=== PATIENT | female | born 1950 | race Caucasian/White ===

== ENCOUNTER → 2017-02-21 | Outpatient (CLI) | payer MEDICARE | END | disposition home or self-care (01) | LOC: CVU 13:38 | PROVIDERS: ATTEND Family Medicine | DX: I65.21 Occlusion and stenosis of right carotid artery (principal); Z86.73 Personal history of transient ischemic attack (TIA), and cerebral infarction without residual deficits | CPT/HCPCS: 93880 ==

== ENCOUNTER 2018-08-25 11:37 | Emergency (ER) | payer MEDICARE ==
[~2018-08-25] VITALS: Ht 165.1 cm; Wt 59.0 kg
[2018-08-25] MEDS ORDERED: DEXAMETHASONE 4 MG/ML, 5ML ONE (12:20)
[2018-08-25] MEDS ORDERED: DIPHENHYDRAMINE 50 MG/ML, 1ML ONE (12:20)
[2018-08-25] MEDS ORDERED: METOCLOPRAMIDE 5 MG/ML, 2ML ONE (12:20)
[2018-08-25] MEDS ORDERED: DEXAMETHASONE 4 MG/ML, 1ML IVPush ONE (12:30)
[2018-08-25] MEDS ORDERED: METOCLOPRAMIDE 5 MG/ML, 2ML IVPush ONE (12:30)
[2018-08-25] MEDS ORDERED: DIPHENHYDRAMINE 50 MG/ML, 1ML IVPush ONE (12:30)
--- NOTE | 2018-08-25 12:53 | NUR ---
PT RETURNED FROM XR & CT. PT LAYING ON GURNEY AWAKE & COMFORTABLE, RESPONDS APPROP TO STAFF, NAD, COMFORT MEASURES PROVIDED, CALL LIGHT WITHIN REACH.
[2018-08-25 13:48] VITALS: BP 154/70
--- NOTE | 2018-08-25 13:49 | NUR ---
PT CONTINUES TO LAY ON GURNEY WITH EYES CLOSED, ABLE TO DOZE OFF, RESPONDS APPROP TO STAFF, NAD, COMFORT MEASURES PROVIDED, CALL LIGHT WITHIN REACH.
--- NOTE | 2018-08-25 14:45 | NUR ---
PT DISCHARGED AND WAS NOT ABLE TO RECEIVE DC PAPERWORK. DAUGHTER CALLED AT PHONE NUMBER LISTED AND WILL RETURN TO [facility]CRIPTION[facility] HER INSTRUCTIONS, PRECAUTIONS, AND PRESCRIPTIONS. DAUGHTER UNDERSTOOD DC INSTRUCTIONS. DAUGHTER INSTRUCTED TO NOT HAVE PT DRIVE ON ROBAXIN/ATARAX AND TAKE IBUPROFEN WITH FOOD. DC PAPER WORK LEFT WITH CHARGE NURSE.
== END 2018-08-25 14:17 | disposition home or self-care (01) ==
LOC: ED 12:16
DX: G44.221 Chronic tension-type headache, intractable (principal); M54.2 Cervicalgia
CPT/HCPCS: 70450; 72050; 93005; 96374; 96375; 99284; J1100; J1200; J2765

== ENCOUNTER 2018-08-28 08:15 | Inpatient (IN) | payer MEDICARE ==
[~2018-08-28] VITALS: Ht 167.6 cm; Wt 60.4 kg
[2018-08-28] MEDS ORDERED: ATEN25TA PO (08:58)
[2018-08-28] MEDS ORDERED: SODIUM CHLORIDE FLUSH 10ML SYR IVF ONE (09:00)
--- NOTE | 2018-08-28 09:04 | NUR ---
pt laying on gurney with eyes closed, responds to verbal stimuli, NAD, comfort measures provided, at BS, call light within reach.
[2018-08-28 09:21] LABS: BASOPHILS # (AUTO) 0.01 x10^3/uL (0-0.1); BASOPHILS % (AUTO) 0 % (0-1); EOSINOPHILS # (AUTO) 0.02 x10^3/uL (0-0.4); EOSINOPHILS % (AUTO) 0 % (1-7); LYMPHOCYTES # (AUTO) 0.88 x10^3/uL (1-3.4); LYMPHOCYTES % (AUTO) 16 % (22-44); MD NO; MEAN CORPUSCULAR HEMOGLOBIN 32.2 pg (27.0-34.8); MEAN CORPUSCULAR HGB CONC 33.7 g/dL (32.4-35.8); MEAN CORPUSCULAR VOLUME 95.8 fL (80-100); MEAN PLATELET VOLUME 9.2 fL (7.4-10.4); MONOCYTES % (AUTO) 15 % (2-9); NEUTROPHILS # (AUTO) 3.71 x10^3/uL (1.8-6.8); NEUTROPHILS % (AUTO) 69 % (42-75); PLATELET COUNT 246 x10^3/uL (130-400)
[2018-08-28 09:23] LABS: MICROSCOPIC AUTO
[2018-08-28 09:24] LABS: CULTURE INDICATED? NO
[2018-08-28 09:26] LABS: INTERNATIONAL NORMALIZED RATIO 1.12 (0.93-1.1); PROTHROMBIN TIME 11.8 Seconds (9.6-11.5)
[2018-08-28 09:31] LABS: ALANINE AMINOTRANSFERASE 15 U/L (12-78); ALBUMIN 3.9 g/dL (3.4-5.0); ANION GAP 6 mmol/L (5-15); CALCIUM 9.2 mg/dL (8.5-10.1); CHLORIDE 105 mmol/L (98-107)
[2018-08-28 09:34] LABS: ALKALINE PHOSPHATASE 64 U/L (45-117); BILIRUBIN,TOTAL 0.6 mg/dL (0.2-1.0); CREATININE 0.82 mg/dL (0.55-1.02); TOTAL PROTEIN 7.7 g/dL (6.4-8.2)
--- NOTE | 2018-08-28 10:02 | NUR ---
pt continues to lay on gurney with eyes closed, responds to verbal stimuli, NAD, comfort measures provided, at BS, call light within reach.
--- NOTE | 2018-08-28 10:30 | NUR ---
pt to Rad for LP
--- NOTE | 2018-08-28 10:40 | NUR ---
Joey ([facility]) [phone] Sharda ocasio) [phone]
[2018-08-28] MEDS ORDERED: LIDOCAINE-MPF 1%, 5ML ONE (10:56)
--- NOTE | 2018-08-28 11:29 | NUR ---
pt returned from Rad, laying flat on gurney awake & comfortable, pt educ on needing to lay flat until 1430, responds to verbal stimuli, NAD, comfort measures provided, call light within reach.
--- NOTE | 2018-08-28 11:57 | NUR ---
REPORT GIVEN TO NOBLE
[2018-08-28 12:00] LABS: GLUCOSE, CSF 36 mg/dL (40-80); TOTAL PROTEIN,CSF 221 mg/dL (15-45)
--- NOTE | 2018-08-28 12:42 | NUR ---
PT REAMINS IN SUPINE POSITION.
[2018-08-28] MEDS ORDERED: POLYETHYLENE GLYCOL 17 GM PACKET PO PRN (14:00)
[2018-08-28] MEDS ORDERED: ONDANSETRON 2MG/ML, 2ML IVPush PRN (14:00)
[2018-08-28] MEDS ORDERED: hydrALAzine 20 MG/ML, 1ML IVPush PRN (14:00)
[2018-08-28] MEDS ORDERED: BISACODYL 10 MG SUPP PR PRN (14:00)
[2018-08-28] MEDS ORDERED: ACETAMINOPHEN 325 MG TABLET PO PRN (14:00)
[2018-08-28] MEDS ORDERED: ENALAPRILAT 1.25 MG/ML, 2ML IVPush PRN (14:00)
[2018-08-28] MEDS ORDERED: ENOXAPARIN 40 MG/0.4 ML SQ SCH (14:00)
[2018-08-28] MEDS ORDERED: VANCOMYCIN PER PHARMACY MC PRN (14:00)
[2018-08-28] MEDS ORDERED: DOCUSATE 100 MG CAPSULE PO PRN (14:00)
[2018-08-28 14:15] VITALS: BP 189/80
[2018-08-28] MEDS ORDERED: PHARMACOKINETIC MONITORING MC PRN (15:00)
[2018-08-28] MEDS ORDERED: PHARMACOKINETIC CONSULTATION MC ONE (15:00)
[2018-08-28] MEDS ORDERED: VANCOMYCIN 1,200 MG in SODIUM CHLORIDE 0.9% 250 ML IV SCH (15:00)
[2018-08-28] MEDS: CEFTRIAXONE PMX 2GM/50ML 50 ML IV SCH (16:27)
[2018-08-28 16:45] LABS: HCT (SEDRATE) 50.3 % (34.6-47.8)
[2018-08-28] MEDS ORDERED: ACETAMINOPHEN 650 MG SUPP PR PRN (19:00)
[2018-08-28 19:54] VITALS: BP_SYST 146; BP_SYST 196; BP_DIAS 72
[2018-08-28] MEDS: ACYCLOVIR 700 MG in SODIUM CHLORIDE 0.9% 100 ML IV SCH (20:20)
[2018-08-28] MEDS: FLUCONAZOLE 400 MG/200 ML 200 ML IV SCH (21:42)
[2018-08-28 23:41] VITALS: BP 137/70
[2018-08-29] MEDS: NS + 20MEQ KCL 1,000 ML IV SCH ×2 (00:46→23:28)
[2018-08-29 01:49] LABS: TROPONIN I 0.016 ng/mL (0.000-0.045)
[2018-08-29] MEDS: LIDODERM 5% PATCH TD SCH (03:37)
[2018-08-29] MEDS: ACYCLOVIR 700 MG in SODIUM CHLORIDE 0.9% 100 ML IV SCH ×3 (03:37→19:28)
[2018-08-29 03:55] VITALS: BP 160/74
[2018-08-29 04:38] LABS: ALANINE AMINOTRANSFERASE 15 U/L (12-78); ALBUMIN 3.5 g/dL (3.4-5.0); ANION GAP 8 mmol/L (5-15); CALCIUM 8.6 mg/dL (8.5-10.1); CHLORIDE 107 mmol/L (98-107); CREATININE 0.81 mg/dL (0.55-1.02)
[2018-08-29 04:40] LABS: ALKALINE PHOSPHATASE 50 U/L (45-117); BASOPHILS # (AUTO) 0.01 x10^3/uL (0-0.1); BASOPHILS % (AUTO) 0 % (0-1); BILIRUBIN,TOTAL 0.6 mg/dL (0.2-1.0); EOSINOPHILS # (AUTO) 0.08 x10^3/uL (0-0.4); EOSINOPHILS % (AUTO) 1 % (1-7); LYMPHOCYTES # (AUTO) 1.62 x10^3/uL (1-3.4); LYMPHOCYTES % (AUTO) 25 % (22-44); MD NO; MEAN CORPUSCULAR HEMOGLOBIN 32.7 pg (27.0-34.8); MEAN CORPUSCULAR HGB CONC 34.2 g/dL (32.4-35.8); MEAN CORPUSCULAR VOLUME 95.5 fL (80-100); MEAN PLATELET VOLUME 8.7 fL (7.4-10.4); MONOCYTES # (AUTO) 0.94 x10^3/uL (0.2-0.8); MONOCYTES % (AUTO) 14 % (2-9); NEUTROPHILS # (AUTO) 3.85 x10^3/uL (1.8-6.8); NEUTROPHILS % (AUTO) 59 % (42-75); PLATELET COUNT 235 x10^3/uL (130-400); RED BLOOD COUNT 5.01 x10^6/uL (3.82-5.3); RED CELL DISTRIBUTION WIDTH 13.1 % (9.6-15.2)
[2018-08-29] MEDS: ATENOLOL 50 MG TABLET PO SCH (05:19)
[2018-08-29] MEDS: CEFTRIAXONE PMX 2GM/50ML 50 ML IV SCH (05:19)
[2018-08-29 07:16] VITALS: BP 158/70
[2018-08-29 12:30] VITALS: BP 137/70
[2018-08-29] MEDS: BUTALB/APAP/CAFFEINE 50MG/325MG/40MG PO PRN ×3 (13:14→21:04)
[2018-08-29] MEDS: NICOTINE 14MG/24 HR PATCH.TD24 TD SCH (16:00)
[2018-08-29 16:19] VITALS: BP 164/87
[2018-08-29 19:38] VITALS: BP 154/82
[2018-08-29] MEDS: FLUCONAZOLE 400 MG/200 ML 200 ML IV SCH (21:04)
[2018-08-30 00:17] VITALS: BP 148/76
[2018-08-30] MEDS: ACYCLOVIR 700 MG in SODIUM CHLORIDE 0.9% 100 ML IV SCH ×2 (03:15→10:51)
[2018-08-30] MEDS: LIDODERM 5% PATCH TD SCH (03:23)
[2018-08-30 03:52] VITALS: BP 137/72
[2018-08-30 05:35] LABS: ANION GAP 6 mmol/L (5-15); CALCIUM 8.2 mg/dL (8.5-10.1); CHLORIDE 110 mmol/L (98-107); CREATININE 0.84 mg/dL (0.55-1.02)
[2018-08-30 05:39] LABS: BASOPHILS # (AUTO) 0.03 x10^3/uL (0-0.1); BASOPHILS % (AUTO) 1 % (0-1); EOSINOPHILS # (AUTO) 0.18 x10^3/uL (0-0.4); EOSINOPHILS % (AUTO) 4 % (1-7); LYMPHOCYTES # (AUTO) 1.56 x10^3/uL (1-3.4); LYMPHOCYTES % (AUTO) 35 % (22-44); MD NO; MEAN CORPUSCULAR HEMOGLOBIN 33.1 pg (27.0-34.8); MEAN CORPUSCULAR HGB CONC 34.4 g/dL (32.4-35.8); MEAN CORPUSCULAR VOLUME 96.1 fL (80-100); MONOCYTES # (AUTO) 0.56 x10^3/uL (0.2-0.8); MONOCYTES % (AUTO) 13 % (2-9); NEUTROPHILS # (AUTO) 2.08 x10^3/uL (1.8-6.8); NEUTROPHILS % (AUTO) 47 % (42-75); PLATELET COUNT 201 x10^3/uL (130-400); RED BLOOD COUNT 4.33 x10^6/uL (3.82-5.3)
[2018-08-30 06:00] VITALS: BP 168/81
[2018-08-30] MEDS: ATENOLOL 50 MG TABLET PO SCH (06:02)
[2018-08-30 07:35] VITALS: BP 160/78
[2018-08-30] MEDS: BUTALB/APAP/CAFFEINE 50MG/325MG/40MG PO PRN ×2 (10:51→18:41)
[2018-08-30] MEDS ORDERED: OMNIPAQUE 350 MG/ML, 100ML BOTTLE ONE (12:49)
[2018-08-30 15:01] VITALS: BP 158/97
[2018-08-30] MEDS ORDERED: VALA1000 PO ×2 (15:24)
[2018-08-30] MEDS: NICOTINE 14MG/24 HR PATCH.TD24 TD SCH ×2 (17:33→18:41)
[2018-08-30] MEDS: NS + 20MEQ KCL 1,000 ML IV SCH (17:33)
[2018-08-30 20:00] VITALS: BP 124/63
[2018-08-30] MEDS: VALACYCLOVIR 500MG TABLET PO SCH (20:06)
[2018-08-31 01:30] VITALS: BP 128/68
[2018-08-31] MEDS: LIDODERM 5% PATCH TD SCH (03:30)
[2018-08-31] MEDS: ATENOLOL 50 MG TABLET PO SCH (06:27)
[2018-08-31 08:00] VITALS: BP 160/77
[2018-08-31] MEDS: VALACYCLOVIR 500MG TABLET PO SCH (08:26)
[2018-08-31] MEDS: NS + 20MEQ KCL 1,000 ML IV SCH (08:26)
[2018-08-31 13:32] VITALS: BP 163/76
[2018-08-31] MEDS ORDERED: LACT1TAB13 PO (15:11)
[2018-08-31] MEDS ORDERED: VALA1000 PO (15:11)
[2018-08-31] MEDS ORDERED: BUTA-177 PO (15:16)
[2018-08-31] MEDS ORDERED: NICO-486 TD (15:16)
[2018-08-31 15:19] VITALS: BP 143/77
== END 2018-08-31 15:50 | disposition home or self-care (01) | DRG 97 ==
LOC: ED 08:47 → EDIP 12:17 → 4EST 14:00
PROVIDERS: ADMIT Internal Medicine; ATTEND Internal Medicine
PROC: 0T9B70Z Drainage of Bladder with Drainage Device, Via Natural or Artificial Opening (ICD-10-PCS; principal; 2018-08-28)
PROC: 009U3ZX Drainage of Spinal Canal, Percutaneous Approach, Diagnostic (ICD-10-PCS; 2018-08-28)
PROC: B01B1ZZ Fluoroscopy of Spinal Cord using Low Osmolar Contrast (ICD-10-PCS; 2018-08-28)
DX: B00.4 Herpesviral encephalitis (principal); B00.3 Herpesviral meningitis; I60.9 Nontraumatic subarachnoid hemorrhage, unspecified; G93.40 Encephalopathy, unspecified; K57.92 Diverticulitis of intestine, part unspecified, without perforation or abscess without bleeding; G03.2 Benign recurrent meningitis [Mollaret]; D75.1 Secondary polycythemia; E87.6 Hypokalemia; F17.200 Nicotine dependence, unspecified, uncomplicated; I11.9 Hypertensive heart disease without heart failure; K52.831 Collagenous colitis; Z78.9 Other specified health status; R73.9 Hyperglycemia, unspecified; Z88.0 Allergy status to penicillin; Z88.8 Allergy status to other drugs, medicaments and biological substances
CPT/HCPCS: 36415; 70450; 70496; 70553; 71046; 77003; 80048; 80053; 81001; 82105; 82378; 82945; 83605; 84145; 84157; 84484; 85025; 85610; 85651; 85730; 86140; 86301; 86304; 86480; 86635; 86651; 86652; 86653; 86654; 86694; 86735; 86738; 86765; 86787; 86788; 86789; 87040; 87070; 87205; 87252; 87529; 87581; 87798; 87899; 89051; 93005; 93306; 99291; G0378; J0133; J0696; J1450; J1650; J2405; J3370; J3480; Q9967; 92523-GN; J0360; J7050

== ENCOUNTER → 2020-12-16 | Outpatient (CLI) | payer MEDICARE ==
[~2020-12-16] MED LIST: ATEN25TA PO; BUTA-177 PO; LACT1TAB13 PO; NICO-486 TD; VALA10007 PO
== END | disposition home or self-care (01) ==
LOC: CFH 10:15
PROVIDERS: ATTEND Family Medicine
DX: G31.89 Other specified degenerative diseases of nervous system (principal); G44.89 Other headache syndrome
CPT/HCPCS: 70450